=== PATIENT | male | born 1965 | race Caucasian/White ===

== ENCOUNTER 2019-06-26 13:52 | Day surgery (SDC) | payer BC ==
[~2019-06-26] VITALS: Ht 170.2 cm; Wt 98.0 kg
[~2019-06-26 13:52] MED LIST: BUPIVACAINE/PF 0.5% ONE; EPINEPHRINE 1 MG/ML, 1ML ONE
[2019-06-26] MEDS ORDERED: LACTATED RINGERS 1,000 ML IV SCH ×3 (14:11→19:38)
[2019-06-26] MEDS ORDERED: MINO50CA3 PO (14:42)
[2019-06-26] MEDS ORDERED: VIT500TA3 PO (14:42)
[2019-06-26] MEDS ORDERED: CHOL200040 PO (14:42)
[2019-06-26] MEDS ORDERED: MULT-797 PO (14:42)
[2019-06-26 14:44] VITALS: BP 133/90
[2019-06-26] MEDS ORDERED: SCOPOLAMINE PATCH, 1.5MG PATCH.TD72 TD ONE ×2 (15:51→16:00)
[2019-06-26] MEDS ORDERED: MIDAZOLAM 1 MG/ML, 2ML ONE (15:52)
[2019-06-26] MEDS ORDERED: FENTANYL PF 250 MCG/5ML ONE (15:52)
[2019-06-26] MEDS ORDERED: ROPIvacaine/PF 0.2%, 20 ML ONE ×2 (16:00)
[2019-06-26] MEDS ORDERED: GLYCOPYRROLATE 0.2MG/1ML, 5ML ONE (16:07)
[2019-06-26] MEDS ORDERED: NEOSTIGMINE 1 MG/ML, 10ML ONE (16:07)
[2019-06-26] MEDS ORDERED: CEFAZOLIN 1,000 MG ONE (16:07)
[2019-06-26] MEDS ORDERED: DEXAMETHASONE 4 MG/ML, 1ML ONE ×2 (16:20)
[2019-06-26] MEDS ORDERED: SUCCINYLCHOLINE 20 MG/ML, 10ML ONE (17:49)
[2019-06-26] MEDS ORDERED: ROCURONIUM 10MG/ML,5ML ONE (17:49)
[2019-06-26] MEDS ORDERED: PROPOFOL 10 MG/ML, 20ML ONE (17:49)
[2019-06-26] MEDS ORDERED: ONDANSETRON 2MG/ML, 2ML ONE ×2 (17:49)
[2019-06-26] MEDS ORDERED: FENTANYL PF 100 MCG/2ML ONE ×2 (17:51→18:14)
[2019-06-26] MEDS ORDERED: OXYcodone 5 MG/5 ML ORAL.SOL UDC ONE (18:14)
[2019-06-26] MEDS: FENTANYL PF 100 MCG/2ML IV PRN ×2 (18:15→18:40)
[2019-06-26] MEDS ORDERED: MEPERIDINE/PF 25MG/ML,1ML IVPush PRN (18:30)
[2019-06-26] MEDS ORDERED: DIAZEPAM 5 MG/ML, 2ML IVPush PRN (18:30)
[2019-06-26] MEDS ORDERED: ACETAMINOPHEN 325 MG TABLET PO PRN (18:30)
[2019-06-26] MEDS ORDERED: PROMETHAZINE 12.5 MG SUPP PR PRN (18:30)
[2019-06-26] MEDS ORDERED: PROMETHAZINE 25 MG/ML, 1ML IV PRN (18:30)
[2019-06-26] MEDS ORDERED: EPHEDRINE 50 MG/ML, 1ML IVPush PRN (18:30)
[2019-06-26] MEDS ORDERED: HYDROmorphone 2 MG/ML, 1ML IVPush PRN (18:30)
[2019-06-26] MEDS ORDERED: hydrALAzine 20 MG/ML, 1ML IV PRN (18:30)
[2019-06-26] MEDS ORDERED: ONDANSETRON 2MG/ML, 2ML IV PRN (18:30)
[2019-06-26] MEDS ORDERED: ALBUTEROL SULFATE 2.5 MG/3 ML NPPB PRN (18:30)
[2019-06-26] MEDS ORDERED: LABETALOL 5MG/ML, 20ML IV PRN (18:30)
[2019-06-26] MEDS ORDERED: MIDAZOLAM 1 MG/ML, 2ML IV PRN (18:30)
[2019-06-26] MEDS ORDERED: ONDANSETRON ODT 8 MG PO PRN (18:30)
[2019-06-26] MEDS ORDERED: OXYcodone 5 MG/5 ML ORAL.SOL UDC PO PRN ×2 (18:30→20:00)
[2019-06-26] MEDS ORDERED: HALOPERIDOL 5 MG/ML IV PRN (18:30)
[2019-06-26] MEDS ORDERED: KETOROLAC 30 MG/1 ML IVPush SCH (19:00)
[2019-06-26] MEDS ORDERED: KETOROLAC 30 MG/1 ML ONE (19:02)
[2019-06-26] MEDS ORDERED: ONDANSETRON 2MG/ML, 2ML IVPush PRN (20:00)
[2019-06-26] MEDS ORDERED: KETOROLAC 30 MG/1 ML IVPush PRN (20:30)
== END 2019-06-26 21:45 | disposition home or self-care (01) ==
LOC: OR 13:52 → 4NE 19:20 → OR 21:45
PROVIDERS: ATTEND Surgery
DX: K43.2 Incisional hernia without obstruction or gangrene (principal); K66.0 Peritoneal adhesions (postprocedural) (postinfection)
CPT/HCPCS: 15734; 49656; 64488; C1781; J0171; J0330; J0690; J1100; J1885; J2250; J2405; J2704; J2710; J2795; J3010; J7120; S2900; G0378